=== PATIENT | male | born 1965 | race Caucasian/White ===

== ENCOUNTER → 2017-02-04 | Outpatient (CLI) | payer OTHER ==
--- NOTE | 2017-02-05 09:32 | XR ---
EXAMINATION TYPE: XR chest 2V DATE OF EXAM: 02/04/2017 COMPARISON: 10/18/2012 INDICATION: Cough, chest heaviness TECHNIQUE: Frontal and lateral views of the chest are obtained. FINDINGS: The heart size is normal. The pulmonary vasculature is normal. The lungs are clear. IMPRESSION: 1. No acute pulmonary process.
== END | disposition home or self-care (01) ==
LOC: RADXRMAIN 17:49
PROVIDERS: ATTEND Internal Medicine
DX: R05 Cough (principal)
CPT/HCPCS: 71020

== ENCOUNTER → 2017-02-14 | Outpatient (CLI) | payer OTHER ==
--- NOTE | 2017-02-14 20:15 | CT ---
EXAMINATION TYPE: CT chest wo con DATE OF EXAM: 02/14/2017 COMPARISON: 11/06/2015 HISTORY: Follow up nodule CT DLP: 769.9 mGycm. Automated Exposure Control for Dose Reduction was Utilized. TECHNIQUE: CT scan of the thorax is performed without IV contrast. FINDINGS: Prone and supine images were obtained. There is no evidence of a pulmonary mass. Lungs are clear of c onsolidation. There is no sign of mediastinal adenopathy. There is mild atherosclerotic vascular calc ification. There are no hilar masses. I do not see evidence of a right upper lobe pulmonary nodule. T here is no pleural effusion. There is mild pulmonary emphysema. Bony thorax appears intact. I see no bony destructive process. IMPRESSION: No evidence of a pulmonary nodule. Mild pulmonary emphysema. No adverse change compared t o old exam.
== END | disposition home or self-care (01) ==
LOC: RADCTMAIN 19:23
PROVIDERS: ATTEND Internal Medicine
DX: J43.9 Emphysema, unspecified (principal); R91.1 Solitary pulmonary nodule
CPT/HCPCS: 71250

== ENCOUNTER → 2017-03-10 | Outpatient (CLI) | payer OTHER ==
--- NOTE | 2017-03-10 11:30 | XR ---
EXAMINATION TYPE: XR hand complete LT DATE OF EXAM: 03/10/2017 COMPARISON: NONE HISTORY: 51-year-old male middle finger sprain, injury TECHNIQUE: 3 views FINDINGS: Very mild osteoarthritic spurring within the second and third MCP joints and mild within the second a nd fifth DIP joints. No acute fracture, subluxation, or dislocation identified. IMPRESSION: Mild scattered osteoarthritic changes. No acute osseous abnormality seen.
== END ==
LOC: RADXRMAIN 11:10
PROVIDERS: ATTEND Emergency Medicine
DX: M19.042 Primary osteoarthritis, left hand (principal)

== ENCOUNTER → 2017-03-17 | Outpatient (CLI) | payer OTHER ==
--- NOTE | 2017-03-17 10:48 | XR ---
EXAMINATION TYPE: XR hand complete LT DATE OF EXAM: 03/17/2017 COMPARISON: 03/10/2017 HISTORY: 51-year-old male left hand pain after injury a week ago, sprain, attention middle finger PIP joint TECHNIQUE: 3 views FINDINGS: Scattered mild osteophytic spurring is present such as at the base of the thumbs, within the DIP join ts, and even at the second and third MCP joints. There is very subtle lucency along the volar base of the third middle phalanx only seen on the lateral view. No other acute fracture, subluxation, or di slocation identified. IMPRESSION: Lucency now seen along the volar base of the third middle phalanx, identified only on the lateral vie w. A subtle nondisplaced volar plate avulsion fracture is not excluded especially if patient's sympto ms localize here at the PIP joint. Scattered mild osteoarthritic changes.
== END ==
LOC: RADXRMAIN 10:24
PROVIDERS: ATTEND Emergency Medicine
DX: M19.042 Primary osteoarthritis, left hand (principal)

== ENCOUNTER → 2017-05-29 | Outpatient (CLI) | payer OTHER ==
--- NOTE | 2017-05-29 14:02 | ECHOS ---
STRESS ECHOCARDIOGRAM INDICATIONS: Chest pain. MEDICATIONS: Hyoscyamine, omeprazole. BASELINE HEART RATE: 84 BASELINE BLOOD PRESSURE: 118/70 MAXIMUM HEART RATE: 157 MAXIMUM BLOOD PRESSURE: 172/85 85% MPHR: 143 100% MPHR: 168 MAXIMUM STAGE REACHED: 4 TOTAL EXERCISE TIME: 10:30. METS: 12.1 CLINICAL INFORMATION: Baseline EKG revealed A normal sinus rhythm without significant ST-T changes. Patient walked for 10.5 minutes on standard [place] protocol. Achieved a maximal heart rate of 157 beats per minute which is more than 85% of predicted maximal. He developed fatigue and shortness of breath but did not have any angina or arrhythmia. EKG did not reveal any ST-segment changes to indicate ischemia. By EKG criteria, this is a negative stress test with good exercise capacity. Baseline echo images revealed normal wall motion and wall thickening of all segments. At peak exercise, the quality of images were suboptimal, but based on available data, there is no evidence to suggest any stress-induced ischemia on this dobutamine echocardiogram. There was good augmentation of wall motion and wall thickening of all segments. Endocardial margins were not very crisply seen. IMPRESSION: 1. By EKG criteria, this is a negative stress test with good exercise capacity. 2. Normal stress echocardiogram with somewhat suboptimal images. MMODL / IJN: [id number] /
== END ==
LOC: RADNMMAIN 09:04
PROVIDERS: ATTEND Internal Medicine
DX: R07.9 Chest pain, unspecified (principal)
CPT/HCPCS: 93017; 93350

== ENCOUNTER → 2017-06-28 | Outpatient (CLI) | payer OTHER ==
--- NOTE | 2017-06-28 17:46 | XR ---
EXAMINATION TYPE: XR shoulder complete RT DATE OF EXAM: 06/28/2017 CLINICAL HISTORY: Right shoulder pain and popping sensation. TECHNIQUE: Three views of the right shoulder are obtained. COMPARISON: None. FINDINGS: There is no acute fracture/dislocation evident in the right shoulder. The acromioclavicul ar and glenohumeral joint spaces appear within normal limits. Subchondral cystic change superolateral humeral head is present. Distal acromion morphology is unremarkable. The visualized ribs are intact and unremarkable. IMPRESSION: There is no acute fracture or dislocation in the right shoulder.
== END | disposition home or self-care (01) ==
LOC: RADXRMAIN 12:25
PROVIDERS: ATTEND Internal Medicine
DX: M25.511 Pain in right shoulder (principal)

== ENCOUNTER 2018-05-23 05:17 | Emergency (ER) | payer OTHER ==
--- NOTE | 2018-05-23 05:49 | ED ---
Abdominal Pain HPI - General Chief Complaint: Abdominal Pain Stated Complaint: Abd Pain Time Seen by Provider: 05/23/18 05:34 Source: EMS Mode of arrival: EMS Limitations: no limitations - History of Present Illness Initial Comments: This patient is a 52-year-old man who presents to be viral for left lower quadrant pain. Patient states he was awakened from sleep around 4 by sharp left lower quadrant pain. He states that initially he thought was gas. He states that he attempted to alleviate it by turning from side to side. This did not relieve the pain and they called EMS. The patient states that the pain was constant, severe, sharp. It was coming by diaphoresis and nausea. Patient states that after he called EMS, it began to feel like it was going towards his left testicle. He states that the pain has subsequently resolved and he is not having any pain currently. MD Complaint: abdominal pain Onset/Timin -: hour(s) Location: LLQ Migration to: other (Right) Severity: severe Quality: sharp Consistency: constant, now resolved Improves With: nothing Worsens With: nothing Associated Symptoms: nausea, vomiting - Related Data Home Medications Medication Instructions Recorded Confirmed Omeprazole [PriLOSEC] 40 mg PO AC-BRKFST 10/04/13 10/05/13 Previous Rx's Medication Instructions Recorded Tamsulosin [Flomax] 0.4 mg PO DAILY #14 cap 05/23/18 Allergies Allergy/AdvReac Type Severity Reaction Status Date / Time No Known Allergies Allergy Verified 05/23/18 05:23 Review of Systems ROS Statement: Those systems with pertinent positive or pertinent negative responses have been documented in the HPI. ROS Other: All systems not noted in ROS Statement are negative. Constitutional: Denies: fever, chills Respiratory: Denies: cough, dyspnea Cardiovascular: Denies: chest pain, palpitations, edema Gastrointestinal: Reports: abdominal pain, nausea. Denies: vomiting, diarrhea, constipation Genitourinary: Reports: testicular pain. Denies: dysuria, frequency, hematuria , testicular mass Musculoskeletal: Denies: back pain Skin: Denies: rash Neurological: Denies: headache Past Medical History Past Medical History: GERD/Reflux History of Any Multi-Drug Resistant Organisms: None Reported Past Surgical History: Appendectomy, Back Surgery Past Anesthesia/Blood Transfusion Reactions: No Reported Reaction Past Psychological History: No Psychological Hx Reported Smoking Status: Current every day smoker Past Alcohol Use History: Rare Past Drug Use History: Marijuana General Exam Limitations: no limitations General appearance: alert, in no apparent distress Head exam: Present: atraumatic, normocephalic Eye exam: Present: normal appearance. Absent: scleral icterus, conjunctival injection Respiratory exam: Present: normal lung sounds bilaterally. Absent: respiratory distress, wheezes, rales, rhonchi, stridor Cardiovascular Exam: Present: regular rate, normal rhythm, normal heart sounds. Absent: systolic murmur, diastolic murmur, rubs, gallop GI/Abdominal exam: Present: soft, normal bowel sounds. Absent: distended, tenderness, guarding, rebound, rigid, mass, pulsatile mass, hernia Extremities exam: Present: normal inspection, normal capillary refill. Absent: pedal edema, calf tenderness Back exam: Present: normal inspection. Absent: CVA tenderness (R), CVA tenderness (L), vertebral tenderness Neurological exam: Present: alert Skin exam: Present: warm, dry, intact, normal color. Absent: rash Course Vital Signs 05/23/18 05:18 Temperature 98 F Pulse Rate 71 Respiratory 20 Rate Blood Pressure 116/79 O2 Sat by Pulse 96 Oximetry Medical Decision Making - Lab Data Result diagrams: 05/23/18 05:50 05/23/18 05:50 Lab Results 05/23/18 05/23/18 05/23/18 Range/Units 05:50 05:50 05:50 WBC 14.6 H (3.8-10.6) k/uL RBC 5.05 (4.30-5.90) m/uL Hgb 15.0 (13.0-17.5) gm/dL Hct 46.2 (39.0-53.0) % MCV 91.5 (80.0-100.0) fL MCH 29.8 (25.0-35.0) pg MCHC 32.6 (31.0-37.0) g/dL RDW 13.0 (11.5-15.5) % Plt Count 256 (150-450) k/uL Neutrophils % 77 % Lymphocytes % 14 % Monocytes % 5 % Eosinophils % 2 % Basophils % 1 % Neutrophils # 11.3 H (1.3-7.7) k/uL Lymphocytes # 2.1 (1.0-4.8) k/uL Monocytes # 0.7 (0-1.0) k/uL Eosinophils # 0.3 (0-0.7) k/uL Basophils # 0.1 (0-0.2) k/uL Sodium 143 (137-145) mmol/L Potassium 4.7 (3.5-5.1) mmol/L Chloride 111 H (98-107) mmol/L Carbon Dioxide 23 (22-30) mmol/L Anion Gap 9 mmol/L BUN 22 H (9-20) mg/dL Creatinine 0.89 (0.66-1.25) mg/dL Est GFR (CKD-EPI)AfAm >90 (>60 ml/min/1.73 sqM) Est GFR (CKD-EPI)NonAf >90 (>60 ml/min/1.73 sqM) Glucose 113 H (74-99) mg/dL Calcium 9.9 (8.4-10.2) mg/dL Total Bilirubin 0.5 (0.2-1.3) mg/dL AST 22 (17-59) U/L ALT 28 (21-72) U/L Alkaline Phosphatase 55 (38-126) U/L Total Protein 7.0 (6.3-8.2) g/dL Albumin 4.2 (3.5-5.0) g/dL Amylase 78 (30-110) U/L Lipase 127 (23-300) U/L Urine Color Yellow Urine Appearance Clear (Clear) Urine pH 5.5 (5.0-8.0) Ur Specific [place] 1.021 (1.001-1.035) Urine Protein Trace H (Negative) Urine Glucose (UA) Negative (Negative) Urine Ketones Negative (Negative) Urine Blood Moderate H (Negative) Urine Nitrite Negative (Negative) Urine Bilirubin Negative (Negative) Urine Urobilinogen <2.0 (<2.0) mg/dL Ur Leukocyte Esterase Negative (Negative) Urine RBC 2 (0-5) /hpf Urine WBC 1 (0-5) /hpf Urine Mucus Rare H (None) /hpf Disposition Clinical Impression: Renal colic on left side Disposition: HOME SELF-CARE Condition: Good Instructions: Renal Colic (ED) Prescriptions: Tamsulosin [Flomax] 0.4 mg PO DAILY #14 cap Is patient prescribed a controlled substance at d/c from ED?: No Referrals: Brittany Issa MD [Primary Care Provider] - 1-2 days Vick Crawford MD [STAFF PHYSICIAN] - 1-2 days
[2018-05-23 06:04] LABS: Basophils # (A) 0.1 k/uL (0-0.2); Basophils % (A) 1 %; Eosinophils # (A) 0.3 k/uL (0-0.7); Eosinophils % (A) 2 %; HCT 46.2 % (39.0-53.0); Lymphocytes # (A) 2.1 k/uL (1.0-4.8); Lymphocytes % (A) 14 %; MCH 29.8 pg (25.0-35.0); MCHC 32.6 g/dL (31.0-37.0); MCV 91.5 fL (80.0-100.0); Mean Platelet Volume 6.9; Monocytes # (A) 0.7 k/uL (0-1.0); Monocytes % (A) 5 %; Neutrophils # (A) 11.3 k/uL (1.3-7.7); Neutrophils % (A) 77 %; Platelet Count 256 k/uL (150-450); RBC 5.05 m/uL (4.30-5.90); WBC 14.6 k/uL (3.8-10.6)
[2018-05-23 06:07] LABS: Appearance,Urine Clear (Clear); Bilirubin,Urine Negative (Negative); Blood,Urine Moderate (Negative); Color,Urine Yellow; Glucose,Urine (UA) Negative (Negative); Ketones,Urine Negative (Negative); Leukocyte Esterase,Urine Negative (Negative); Mucus,Urine Rare /hpf; Nitrite,Urine Negative (Negative); PH, Urine 5.5 (5.0-8.0); Protein,Urine Trace (Negative); RBC,Urine 2 /hpf (0-5); Specific Gravity,Urine 1.021 (1.001-1.035); Urobilinogen,Urine <2.0 mg/dL (<2.0); WBC,Urine 1 /hpf (0-5)
[2018-05-23 06:17] LABS: Albumin 4.2 g/dL (3.5-5.0); Amylase 78 U/L (30-110); Anion Gap 9 mmol/L; Calcium 9.9 mg/dL (8.4-10.2); Carbon Dioxide 23 mmol/L (22-30); Chloride 111 mmol/L (98-107); Glucose 113 mg/dL (74-99); Lipase 127 U/L (23-300); Sodium 143 mmol/L (137-145); Total Bilirubin 0.5 mg/dL (0.2-1.3)
[2018-05-23 06:19] LABS: ALT 28 U/L (21-72); AST 22 U/L (17-59); Alkaline Phosphatase 55 U/L (38-126); Blood Urea Nitrogen 22 mg/dL (9-20); Potassium 4.7 mmol/L (3.5-5.1)
[2018-05-23] MEDS ORDERED: TAMSULOSIN 0.4 MG CAP.ER.24H PO STA (07:41)
[2018-05-23 08:09] VITALS: BP 114/72; PULSE 80; RESP 18; TEMP 98.2
== END 2018-05-23 08:07 | disposition home or self-care (01) ==
LOC: EC 05:17
DX: N23 Unspecified renal colic (principal); K21.9 Gastro-esophageal reflux disease without esophagitis; F17.200 Nicotine dependence, unspecified, uncomplicated; Z90.49 Acquired absence of other specified parts of digestive tract; Z79.899 Other long term (current) drug therapy
CPT/HCPCS: 36415; 80053; 81001; 82150; 83690; 85025; 99284

== ENCOUNTER → 2019-02-08 | Outpatient (CLI) | payer OTHER ==
--- NOTE | 2019-02-09 08:33 | XR ---
EXAMINATION TYPE: XR chest 2V DATE OF EXAM: 02/08/2019 COMPARISON: 02/04/2017 HISTORY: Cough with history of tobacco abuse TECHNIQUE: Frontal and lateral views of the chest are obtained. FINDINGS: There is no focal air space opacity, pleural effusion, or pneumothorax seen. Slight centra l peribronchial cuffing. The cardiac silhouette size is within normal limits. The osseous structure s are intact. Mild multilevel degenerative changes of the spine. IMPRESSION: Slight central peribronchial cuffing may be on the basis of reactive or infectious airwa y disease. No focal consolidation is seen.
--- NOTE | 2019-02-09 08:41 | XR ---
EXAMINATION TYPE: XR cervical spine comp DATE OF EXAM: 02/08/2019 TECHNIQUE: Frontal, lateral, oblique, swimmers, and open mouth view of the cervical spine are caitlyn mcguire HISTORY: M47.892, J44.9 nontraumatic neck pain COMPARISON: None FINDINGS: The cervical spine is visualized in its entirety from C1 thru the top of T1 level, it is s atisfactory in alignment without evidence of acute fracture or dislocation. The pre-vertebral soft t issue appears within normal limits. The C1-C2 articulation is within normal limits on the open mouth view. Small anterior osteophytes are seen at C4-C5, C5-C6 and C6-C7 The oblique images are within no rmal limits. There is straightening of usual cervical lordosis. IMPRESSION: No acute fracture or dislocation is seen in the cervical spine. Mild multilevel degenera tive disc disease of the cervical spine. Straightening of usual cervical lordosis that may relate to muscular sprain/spasm or patient positioning.
== END | disposition home or self-care (01) ==
LOC: RADXRMAIN 17:24
PROVIDERS: ATTEND Internal Medicine
DX: M50.30 Other cervical disc degeneration, unspecified cervical region (principal); M40.40 Postural lordosis, site unspecified; J44.9 Chronic obstructive pulmonary disease, unspecified
CPT/HCPCS: 71046; 72050

== ENCOUNTER → 2019-02-11 | Outpatient (CLI) | payer OTHER ==
--- NOTE | 2019-02-12 07:25 | XR ---
EXAMINATION TYPE: XR shoulder complete LT DATE OF EXAM: 02/11/2019 CLINICAL HISTORY: Left shoulder pain with no known injury TECHNIQUE: Three views of the left shoulder are obtained. COMPARISON: None. FINDINGS: There is no acute fracture/dislocation evident in the left shoulder. The acromioclavicula r and glenohumeral joint spaces appear alignment however there are small marginal osteophytes of the acromioclavicular joint. The visualized ribs are intact and unremarkable. IMPRESSION: There is no acute fracture or dislocation in the left shoulder. Mild left acromioclavicu lar arthropathy.
--- NOTE | 2019-02-12 07:39 | XR ---
EXAMINATION TYPE: XR Hip Complete LT DATE OF EXAM: 02/11/2019 CLINICAL HISTORY: Left hip pain TECHNIQUE: AP and frogleg views of the left hip are obtained. COMPARISON: None. FINDINGS: There is no acute fracture/dislocation evident in the left hip. The joint space in the le ft hip appears aligned with minimal acetabular sclerosis. Small cam deformity is seen of the lateral femoral head neck junction on the frog-leg view. The overlying soft tissue appears unremarkable. IMPRESSION: There is no acute fracture or dislocation in the left hip. Minimal left femoral acetabul ar arthropathy in addition to a small cam deformity that can predispose this patient to femoral aceta bular impingement syndrome.
== END | disposition home or self-care (01) ==
LOC: RADXRMAIN 17:46
PROVIDERS: ATTEND Internal Medicine
DX: M19.012 Primary osteoarthritis, left shoulder (principal); M16.12 Unilateral primary osteoarthritis, left hip
CPT/HCPCS: 73502

== ENCOUNTER → 2019-04-16 | Outpatient (CLI) | payer OTHER ==
--- NOTE | 2019-04-16 08:16 | US ---
EXAMINATION TYPE: US gallbladder DATE OF EXAM: 04/16/2019 COMPARISON: NONE CLINICAL HISTORY: R10.13 Epigastric pain. EXAM MEASUREMENTS: Liver Length: 12.7 cm Gallbladder Wall: 0.1 cm CBD: 0.2 cm Right Kidney: 10.7 x 4.4 x 4.6 cm Pancreas: Obscured by bowel gas Liver: wnl Gallbladder: wnl Evidence for sonographic Turner's sign: no CBD: wnl Right Kidney: No hydronephrosis or masses seen IMPRESSION: No sonographic evidence of cholelithiasis nor acute cholecystitis. Unremarkable abdominal ultrasound.
== END | disposition home or self-care (01) ==
LOC: RADUSWWP 06:52
PROVIDERS: ATTEND Internal Medicine Gastroenterology
DX: R10.13 Epigastric pain (principal)
CPT/HCPCS: 76705

== ENCOUNTER 2019-04-27 20:56 | Emergency (ER) | payer OTHER ==
[2019-04-27] MEDS ORDERED: KETOROLAC 30 MG/ML 1 ML VIAL IVP STA (21:29)
[2019-04-27] MEDS ORDERED: ONDANSETRON 4 MG/2 ML VIAL IVP STA (21:29)
[2019-04-27] MEDS ORDERED: SODIUM CHLORIDE 0.9% 1,000 ML IV STA (21:29)
[2019-04-27] MEDS ORDERED: HYDROmorphone 0.5 MG/0.5 ML SYRINGE IVP STA (21:29)
[2019-04-27 21:50] LABS: Basophils # (A) 0.3 k/uL (0-0.2); Basophils % (A) 2 %; Eosinophils # (A) 0.3 k/uL (0-0.7); Eosinophils % (A) 2 %; HCT 43.8 % (39.0-53.0); HGB 14.7 gm/dL (13.0-17.5); Lymphocytes # (A) 0.5 k/uL (1.0-4.8); Lymphocytes % (A) 3 %; MCH 29.9 pg (25.0-35.0); MCHC 33.5 g/dL (31.0-37.0); MCV 89.4 fL (80.0-100.0); Mean Platelet Volume 6.7; Monocytes # (A) 0.7 k/uL (0-1.0); Monocytes % (A) 4 %; Neutrophils # (A) 13.8 k/uL (1.3-7.7); Neutrophils % (A) 88 %; Platelet Count 228 k/uL (150-450); WBC 15.7 k/uL (3.8-10.6)
[2019-04-27 22:02] LABS: ALT 45 U/L (21-72); AST 21 U/L (17-59); African American GFR (CKD) >90 (>60 ml/min/1.73 sqM); Albumin 4.5 g/dL (3.5-5.0); Alkaline Phosphatase 58 U/L (38-126); Anion Gap 9 mmol/L; Blood Urea Nitrogen 14 mg/dL (9-20); Calcium 9.7 mg/dL (8.4-10.2); Carbon Dioxide 22 mmol/L (22-30); Chloride 105 mmol/L (98-107); Glucose 119 mg/dL (74-99); Magnesium 1.9 mg/dL (1.6-2.3); Non-African American GFR(CKD) 90 (>60 ml/min/1.73 sqM); Sodium 136 mmol/L (137-145); Total Bilirubin 0.9 mg/dL (0.2-1.3); Total Protein 6.9 g/dL (6.3-8.2)
[2019-04-27 22:04] LABS: D-Dimer 0.31 mg/L FEU (<0.60); Partial Thromboplastin Time 26.1 sec (22.0-30.0); Prothrombin Time 10.3 sec (9.0-12.0)
[2019-04-27] MEDS ORDERED: ACETAMINOPHEN TAB 500 MG TAB PO STA (22:26)
--- NOTE | 2019-04-27 22:27 | ED ---
General Adult HPI - General Chief complaint: Back Pain/Injury Stated complaint: Lower back, arm pain, sweating, SOB Time Seen by Provider: 04/27/19 21:16 Source: patient Mode of arrival: wheelchair Limitations: no limitations - History of Present Illness Initial comments: 53-year-old male patient presents to the emergency department today for evaluation of increased low back pain. Patient states throughout the day today he has had increased low back pain. States is radiating across his entire low back area describes the pain is sharp in nature. Denies radiation down his legs. Denies any numbness or tingling to the lower extremities, or loss of bowel or bladder control. Denies saddle anesthesia. Patient does have history of low back pain and has had 2 surgeries to the low back. States the pain feels somewhat different than usual. He is also reporting pain between his shoulder blades social taking a deep breath. States he is experiencing nasal congestion and drainage and sore throat. He denies any cough or chest congestion. Denies rash. Denies any hematuria, dysuria, urinary frequency, urinary urgency. He is reporting fever and chills. He did take tylenol about 6 hours ago with little relief. Patient denies any recent rash, shortness breath, chest pain, abdominal pain, nausea, vomiting, diarrhea, constipation, dizziness, weakness, visual changes, or any other complaints. - Related Data Home Medications Medication Instructions Recorded Confirmed Amitriptyline HCl [Elavil] 10 mg PO HS 04/27/19 04/27/19 Omeprazole [PriLOSEC] 20 mg PO DAILY 04/27/19 04/27/19 Previous Rx's Medication Instructions Recorded Azithromycin 250 mg PO DAILY #4 tablet 04/28/19 Allergies Allergy/AdvReac Type Severity Reaction Status Date / Time No Known Allergies Allergy Verified 04/27/19 22:33 Review of Systems ROS Statement: Those systems with pertinent positive or pertinent negative responses have been documented in the HPI. ROS Other: All systems not noted in ROS Statement are negative. Past Medical History Past Medical History: GERD/Reflux History of Any Multi-Drug Resistant Organisms: None Reported Past Surgical History: Appendectomy, Back Surgery Past Anesthesia/Blood Transfusion Reactions: No Reported Reaction Past Psychological History: No Psychological Hx Reported Smoking Status: Current every day smoker Past Alcohol Use History: Rare Past Drug Use History: Marijuana General Exam Limitations: no limitations General appearance: alert, in no apparent distress, other (This is a well- developed, well-nourished adult male patient in no acute distress. Vital signs upon presentation are temperature 101.4F, pulse 103, respirations 20, blood pressure 117/69, pulse ox 96% on room air per) Eye exam: Present: normal appearance, PERRL, EOMI. Absent: scleral icterus, conjunctival injection, periorbital swelling ENT exam: Present: normal exam, normal oropharynx, mucous membranes moist Neck exam: Present: normal inspection, full ROM. Absent: tenderness, meningismus, lymphadenopathy Respiratory exam: Present: normal lung sounds bilaterally. Absent: respiratory distress, wheezes, rales, rhonchi, stridor GI/Abdominal exam: Present: soft, normal bowel sounds. Absent: distended, tenderness, guarding, rebound, rigid Back exam: Present: normal inspection. Absent: vertebral tenderness Neurological exam: Present: alert, oriented X3, CN II-XII intact Psychiatric exam: Present: normal affect, normal mood Skin exam: Present: warm, dry, intact, normal color. Absent: rash Course Vital Signs 04/27/19 04/27/19 04/27/19 20:58 22:15 23:31 Temperature 99.5 F 101.4 F H 98.6 F Pulse Rate 103 H Respiratory 20 Rate Blood Pressure 117/69 O2 Sat by Pulse 96 Oximetry 04/27/19 04/28/19 23:32 00:54 Temperature 98.5 F Pulse Rate 85 93 Respiratory 18 18 Rate Blood Pressure 106/73 108/65 O2 Sat by Pulse 94 L 100 Oximetry EKG Findings - EKG Comments: EKG Findings:: EKG obtained at 2147 shows normal sinus rhythm with a ventricular rate of 92, FL interval 130, QRS duration 90, QT 332, QTc 410. No evidence of ST elevation or depression. Medical Decision Making - Medical Decision Making 53-year-old male patient presents to the emergency department today for evaluation of upper back pain with inspiration, low back pain, and fever. Physical examination did reveal clear equal lung sounds. He is neurologically intact with no focal deficits. No concerning symptoms for cauda equina. Vital signs do reveal elevated temperature but are otherwise normal. Labs reviewed and did reveal elevated white blood cell count at 15.6. Urinalysis is negative for presence of blood. Chest x-ray did show left lower lobe infiltrate. We'll treat with a azithromycin for pneumonia. He is instructed to take Tylenol Motrin for fever control. Instructed to follow-up with his primary care physician for recheck in 1-2 days. Return parameters were discussed in detail. He verbalizes understanding and agrees with this plan. - Lab Data Result diagrams: 04/27/19 21:35 04/27/19 21:35 Lab Results 04/27/19 04/27/19 04/27/19 Range/Units 21:35 21:35 21:35 WBC 15.7 H (3.8-10.6) k/uL RBC 4.90 (4.30-5.90) m/uL Hgb 14.7 (13.0-17.5) gm/dL Hct 43.8 (39.0-53.0) % MCV 89.4 (80.0-100.0) fL MCH 29.9 (25.0-35.0) pg MCHC 33.5 (31.0-37.0) g/dL RDW 13.0 (11.5-15.5) % Plt Count 228 (150-450) k/uL Neutrophils % 88 % Lymphocytes % 3 % Monocytes % 4 % Eosinophils % 2 % Basophils % 2 % Neutrophils # 13.8 H (1.3-7.7) k/uL Lymphocytes # 0.5 L (1.0-4.8) k/uL Monocytes # 0.7 (0-1.0) k/uL Eosinophils # 0.3 (0-0.7) k/uL Basophils # 0.3 H (0-0.2) k/uL PT 10.3 (9.0-12.0) sec INR 1.0 (<1.2) APTT 26.1 (22.0-30.0) sec D-Dimer 0.31 (<0.60) mg/L FEU Sodium 136 L (137-145) mmol/L Potassium 4.0 (3.5-5.1) mmol/L Chloride 105 (98-107) mmol/L Carbon Dioxide 22 (22-30) mmol/L Anion Gap 9 mmol/L BUN 14 (9-20) mg/dL Creatinine 0.96 (0.66-1.25) mg/dL Est GFR (CKD-EPI)AfAm >90 (>60 ml/min/1.73 sqM) Est GFR (CKD-EPI)NonAf 90 (>60 ml/min/1.73 sqM) Glucose 119 H (74-99) mg/dL Calcium 9.7 (8.4-10.2) mg/dL Magnesium 1.9 (1.6-2.3) mg/dL Total Bilirubin 0.9 (0.2-1.3) mg/dL AST 21 (17-59) U/L ALT 45 (21-72) U/L Alkaline Phosphatase 58 (38-126) U/L Troponin I (0.000-0.034) ng/mL Total Protein 6.9 (6.3-8.2) g/dL Albumin 4.5 (3.5-5.0) g/dL Urine Color Urine Appearance (Clear) Urine pH (5.0-8.0) Ur Specific [place] (1.001-1.035) Urine Protein (Negative) Urine Glucose (UA) (Negative) Urine Ketones (Negative) Urine Blood (Negative) Urine Nitrite (Negative) Urine Bilirubin (Negative) Urine Urobilinogen (<2.0) mg/dL Ur Leukocyte Esterase (Negative) Influenza Type A RNA (Not Detectd) Influenza Type B (PCR) (Not Detectd) 04/27/19 04/27/19 04/27/19 Range/Units 21:35 22:00 22:30 WBC (3.8-10.6) k/uL RBC (4.30-5.90) m/uL Hgb (13.0-17.5) gm/dL Hct (39.0-53.0) % MCV (80.0-100.0) fL MCH (25.0-35.0) pg MCHC (31.0-37.0) g/dL RDW (11.5-15.5) % Plt Count (150-450) k/uL Neutrophils % % Lymphocytes % % Monocytes % % Eosinophils % % Basophils % % Neutrophils # (1.3-7.7) k/uL Lymphocytes # (1.0-4.8) k/uL Monocytes # (0-1.0) k/uL Eosinophils # (0-0.7) k/uL Basophils # (0-0.2) k/uL PT (9.0-12.0) sec INR (<1.2) APTT (22.0-30.0) sec D-Dimer (<0.60) mg/L FEU Sodium (137-145) mmol/L Potassium (3.5-5.1) mmol/L Chloride (98-107) mmol/L Carbon Dioxide (22-30) mmol/L Anion Gap mmol/L BUN (9-20) mg/dL Creatinine (0.66-1.25) mg/dL Est GFR (CKD-EPI)AfAm (>60 ml/min/1.73 sqM) Est GFR (CKD-EPI)NonAf (>60 ml/min/1.73 sqM) Glucose (74-99) mg/dL Calcium (8.4-10.2) mg/dL Magnesium (1.6-2.3) mg/dL Total Bilirubin (0.2-1.3) mg/dL AST (17-59) U/L ALT (21-72) U/L Alkaline Phosphatase (38-126) U/L Troponin I <0.012 (0.000-0.034) ng/mL Total Protein (6.3-8.2) g/dL Albumin (3.5-5.0) g/dL Urine Color Yellow Urine Appearance Clear (Clear) Urine pH 8.0 (5.0-8.0) Ur Specific [place] 1.023 (1.001-1.035) Urine Protein Trace H (Negative) Urine Glucose (UA) Negative (Negative) Urine Ketones 1+ H (Negative) Urine Blood Negative (Negative) Urine Nitrite Negative (Negative) Urine Bilirubin Negative (Negative) Urine Urobilinogen <2.0 (<2.0) mg/dL Ur Leukocyte Esterase Negative (Negative) Influenza Type A RNA Not Detected (Not Detectd) Influenza Type B (PCR) Not Detected (Not Detectd) Disposition Clinical Impression: Pneumonia, Fever Disposition: HOME SELF-CARE Condition: Good Instructions (If sedation given, give patient instructions): Fever in Adults (ED), Pneumonia (ED) Additional Instructions: Take Tylenol Motrin alternating for fever control. Complete antibiotic prescription in full. Follow-up with your primary care physician for recheck in 1-2 days. Return to the emergency department immediately for any new, worsening, or concerning symptoms. Prescriptions: Azithromycin 250 mg PO DAILY #4 tablet Is patient prescribed a controlled substance at d/c from ED?: No Referrals: Brittany Issa MD [Primary Care Provider] - 1-2 days Time of Disposition: 00:16
--- NOTE | 2019-04-27 22:40 | XR ---
EXAMINATION TYPE: XR chest 2V DATE OF EXAM: 04/27/2019 COMPARISON: 02/08/2019 HISTORY: Pain TECHNIQUE: Frontal and lateral views of the chest are obtained. FINDINGS: Heart is normal. Lungs are clear of consolidation. There are no hilar masses. There is nabil e mild coarse linear density in the left lower lobe. There is no pleural effusion. Bony thorax is int act. IMPRESSION: There is some mild linear infiltrate and atelectasis left lower lobe that is new compare d to old exam. Normal heart.
[2019-04-27 23:34] VITALS: RESP 18
[2019-04-28 00:12] LABS: Appearance,Urine Clear (Clear); Bilirubin,Urine Negative (Negative); Blood,Urine Negative (Negative); Color,Urine Yellow; Glucose,Urine (UA) Negative (Negative); Ketones,Urine 1+ (Negative); Leukocyte Esterase,Urine Negative (Negative); Nitrite,Urine Negative (Negative); Protein,Urine Trace (Negative); Specific Gravity,Urine 1.023 (1.001-1.035); Urobilinogen,Urine <2.0 mg/dL (<2.0)
[2019-04-28] MEDS ORDERED: AZITHROMYCIN 500 MG TAB PO STA (00:15)
[2019-04-28 00:55] VITALS: BP 108/65; PULSE 93; TEMP 98.5
== END 2019-04-28 00:55 | disposition home or self-care (01) ==
LOC: EC 20:56
DX: J18.1 Lobar pneumonia, unspecified organism (principal); M54.5 Low back pain; M54.6 Pain in thoracic spine; J02.9 Acute pharyngitis, unspecified; K21.9 Gastro-esophageal reflux disease without esophagitis; F17.200 Nicotine dependence, unspecified, uncomplicated; Z79.899 Other long term (current) drug therapy; Z98.890 Other specified postprocedural states
CPT/HCPCS: 36415; 93005; 85379; 80053; 83735; 84484; 85025; 85610; 85730; 81003; 87502; 71046; 99284; 96374; 96375 ×2; 96361; J2405; J1885; J1170

== ENCOUNTER → 2019-07-19 | Outpatient (CLI) | payer OTHER ==
--- NOTE | 2019-07-20 03:45 | XR ---
EXAMINATION TYPE: XR chest 2V DATE OF EXAM: 07/19/2019 COMPARISON: None HISTORY: 53-year-old male follow-up pneumonia, J18.9, M47.897 TECHNIQUE: Frontal and lateral views FINDINGS: The heart is normal size. Aorta and pulmonary vasculature within normal limits. Left hilar/suprahilar prominence may be projectional. No consolidation or pleural effusion. IMPRESSION: Left hilar/suprahilar prominence may be projectional. Contrast enhanced CT can exclude underlying mas s or lymphadenopathy. Otherwise, no acute process seen.
--- NOTE | 2019-07-20 03:47 | XR ---
EXAMINATION TYPE: XR lumbar spine 2 or 3V DATE OF EXAM: 07/19/2019 Comparison: None Clinical History: 53-year-old male J18.9, M47.897. Pain. Findings: There seems to be a transitional lumbosacral segment denoted as a sacralized L5. Hypertrophic facet a rthropathy throughout. Moderate degenerative disc disease mid and lower lumbar spine characterized by disc space narrowing and endplate spondylosis. Vertebral body heights are preserved and alignment is maintained. Impression: Transitional lumbosacral segment denoted as a sacralized L5. Hypertrophic facet arthropathy throughou t without malalignment. Moderate degenerative disc disease mid to lower lumbar spine.
== END | disposition home or self-care (01) ==
LOC: RAD 16:36
PROVIDERS: ATTEND Internal Medicine
DX: M51.36 Other intervertebral disc degeneration, lumbar region (principal); M43.27 Fusion of spine, lumbosacral region; M46.96 Unspecified inflammatory spondylopathy, lumbar region; J18.9 Pneumonia, unspecified organism
CPT/HCPCS: 71046; 72100

== ENCOUNTER → 2019-08-19 | Outpatient (CLI) | payer OTHER ==
--- NOTE | 2019-08-20 07:54 | CT ---
EXAMINATION TYPE: CT chest w con DATE OF EXAM: 08/19/2019 COMPARISON: Chest x-ray February 14, 2017. And CT low dose lung November 06, 2015 along with chest x-ray July 19, 2019. HISTORY: Pulmonary mass. CT DLP: 389.4 mGycm. Automated Exposure Control for Dose Reduction was Utilized. TECHNIQUE: CT scan of the thorax is performed following with IV Contrast, patient injected with 100m l mL of Isovue 300. FINDINGS: LUNGS: Mild emphysematous change particularly posterior aspect of the lung apices. No suspicious nodu les or masses with particular attention to the left hilar region at area of concern on x-ray. Finding correlates with confluence of pulmonary vessels. No pleural effusion or pneumothorax. No suspicious nodules or masses. MEDIASTINUM: There are no greater than 1 cm hilar or mediastinal lymph nodes. No cardiomegaly or pe ricardial effusion is seen. OTHER: Fairly moderate multilevel spurring in the thoracic spine. IMPRESSION: No suspicious nodules or masses. Mild emphysematous change without acute pulmonary proces s. No significant change from prior studies.
== END | disposition home or self-care (01) ==
LOC: RADCTMAIN 17:19
PROVIDERS: ATTEND Internal Medicine
DX: R91.8 Other nonspecific abnormal finding of lung field (principal)
CPT/HCPCS: 71260; Q9967

== ENCOUNTER 2022-04-12 06:21 | Day surgery (SDC) | payer OTHER ==
[2022-04-11 11:32] VITALS: BMI 30.1
[~2022-04-12 06:21] MED LIST: LACTATED RINGERS 1,000 ML IV SCH
[2022-04-12 06:51] VITALS: TEMP 97.5
[2022-04-12] MEDS ORDERED: PROPOFOL 10 MG/ML 20 ML VIAL IV ONE (07:18)
[2022-04-12] MEDS ORDERED: fentaNYL (PF) 50 MCG/ML 2 ML AMP ONE (07:18)
[2022-04-12] MEDS ORDERED: MIDAZOLAM 2 MG/2 ML VIAL ONE (07:18)
[2022-04-12] MEDS ORDERED: LIDOCAINE 2% INJ 20 MG/ML (2 ML VIAL) ONE (07:18)
--- NOTE | 2022-04-12 07:45 | P.PCN ---
Date of Procedure: 04/12/22 Procedure(s) Performed: Brief history: Patient is a pleasant 56-year-old white female scheduled for an elective upper endoscopy as well as colonoscopy as a part of evaluation of GERD/intermittent epigastric pain and screening for colon cancer. Procedure performed: Esophagogastroduodenoscopy with biopsy Colonoscopy Preoperative diagnosis: GERD/intermittent epigastric pain Screening for colon cancer Anesthesia: MAC Procedure: After informed consent was obtained from the patient was brought into the endoscopy unit and IV sedation was administered by anesthesia under continuous monitoring. Initially upper endoscopy was done. The Olympus GF 160 video endoscope was inserted inserted into the mouth and esophagus intubated without any difficulty and was gradually advanced into the stomach and duodenum and carefully examined. The bulb and second part of the duodenum appeared normal. The scope was then withdrawn into the stomach adequately insufflated with air and upon careful examination the antrum and body, had diffuse gastritis and biopsies were done from this area. The cardia and fundus appeared normal. The scope was then withdrawn into the esophagus. The GE junction was located at 40 cm to the incisors. Small hiatal hernia noted. There was a short segment of Foster's esophagus extended 5 mm proximal to the GE junction which was biopsied. There was no erythema erosions or ulcerations. Rest of the esophagus appeared normal. Patient tolerated the procedure well. At this time the patient continued to remain sedation. Initial digital rectal examination was normal. Olympus CF 160 video colonoscope was then inserted into the rectum and gradually advanced to the cecum without any difficulty. Careful examination was performed as the scope was gradually being withdrawn. The prep was excellent. The cecum, ascending colon, transverse colon, descending colon, sigmoid colon and rectum appeared normal. Retroflexion was performed in the rectum and no lesions were noted. Patient tolerated the procedure well. Impression: 1. Upper endoscopy revealed antral erosive gastritis, small hiatal hernia and short segment Foster's esophagus 2. Colonoscopy was within normal limits with no evidence of colorectal neoplasia. Recommendations: Findings of this examination were discussed with the patient as well as her family. He was advised to follow with the biopsy results. In general with omeprazole 20 mg daily and follow antireflux measures. If the biopsy reveals presence of Foster's esophagus he can have a repeat upper endoscopy in 3 years. Recommend repeat screening colonoscopy in 10 years.
[2022-04-12 08:20] VITALS: BP 122/79; PULSE 66; RESP 16
== END 2022-04-12 08:23 | disposition home or self-care (01) ==
LOC: ORWHC2ENDO 06:21
PROVIDERS: ATTEND Internal Medicine Gastroenterology
DX: Z12.11 Encounter for screening for malignant neoplasm of colon (principal); K29.50 Unspecified chronic gastritis without bleeding; K22.70 Barrett's esophagus without dysplasia; K21.00 Gastro-esophageal reflux disease with esophagitis, without bleeding; K44.9 Diaphragmatic hernia without obstruction or gangrene; E78.5 Hyperlipidemia, unspecified; J44.9 Chronic obstructive pulmonary disease, unspecified
CPT/HCPCS: 88305; 45378; 43239; J2250; J3010; J2704; J2001

== ENCOUNTER → 2023-01-02 | Outpatient (CLI) | payer OTHER ==
--- NOTE | 2023-01-02 08:53 | US ---
EXAMINATION TYPE: US carotid duplex BILAT DATE OF EXAM: 01/02/2023 COMPARISON: NONE CLINICAL INDICATION: Male, 57 years old with history of I65.23 CAROTID STENOSIS; family hx of heart a ttack, father at 52, brother at 48 TECHNIQUE: Carotid duplex ultrasound examination. Indirect Doppler criteria was utilized. FINDINGS: EXAM MEASUREMENTS: RIGHT: Peak Systolic Velocity (PSV) cm/sec ----- Right CCA: 93.9 ----- Right ICA: 85.2 ----- Right ECA: 118.9 ICA/CCA ratio: 0.9 RIGHT: End Diastole cm/sec ----- Right CCA: 37.2 ----- Right ICA: 31.4 ----- Right ECA: 23.6 LEFT: Peak Systolic Velocity (PSV) cm/sec ----- Left CCA: 75.3 ----- Left ICA: 89.7 ----- Left ECA: 118.5 ICA/CCA ratio: 0.9 LEFT: End Diastole cm/sec ----- Left CCA: 26.8 ----- Left ICA: 41.3 ----- Left ECA: 27.9 VERTEBRALS (direction of flow): Right Vertebral: Antegrade Left Vertebral: Antegrade Rhythm: Normal COMMUNITY DIETITIAN NOTES: Mild atherosclerotic IMPRESSION: Less than 50% stenosis of bilateral carotid bifurcations. Criteria for Assigning % of Stenosis / Diameter reduction (Estimation based on the indirect measurements of the internal carotid artery velocities (ICA PSV). 1. Normal (no stenosis)=ICA PSV < 125 cm/s: ratio < 2.0: ICA EDV<40 cm/s. 2. Less than 50% stenosis=ICA PSV < 125 cm/s: ratio < 2.0: ICA EDV<40 cm/s. 3. 50 to 69% stenosis=ICA PSV of 125 to 230 cm/s: ration 2.0 ? 4.0: ICA EDV 40-100 cm/s. 4. Greater than 70% stenosis to near occlusion= ICA PSV > 230 cm/s: ratio > 4.0: ICA EDV > 100 cm/s. 5. Near occlusion= ICA PSV velocities may be low or undetectable: variable ratio and ICA EDV. 6. Total occlusion=unable to detect flow.
--- NOTE | 2023-01-02 09:16 | US ---
EXAMINATION TYPE: US gallbladder DATE OF EXAM: 01/02/2023 COMPARISON: NONE CLINICAL INDICATION: Male, 57 years old with history of R10.13 DYSPEPSIA; intermittent epigastric collette n often with hunger TECHNIQUE: Multiple sonographic images of the right upper quadrant are obtained. FINDINGS: EXAM MEASUREMENTS: Liver Length: 15.5 cm Gallbladder Wall: 0.1 cm CBD: 0.6 cm Right Kidney: 10.2x4.3x4.8 cm Pancreas: partly obscured by overlying bowel gas. Limited detailed assessment due to large patient b azra habitus. Liver: Slightly limited due to bowel and rib spaces. In addition, there is diffuse increased echogeni city and far field attenuation. Gallbladder: wnl Evidence for sonographic Turner's sign: No CBD: upper limits Right Kidney: wnl IMPRESSION: 1. Moderate to severe hepatic steatosis. Correlate with LFTs, lipid profile, and patient risk factors . 2. No gallstones. 3. Bile duct borderline in caliber at 6 mm. This may be chronic for the patient. Correlate with alkal ine phosphatase and bilirubin levels.
== END | disposition home or self-care (01) ==
LOC: RADUSWWP 06:58
PROVIDERS: ATTEND Internal Medicine
DX: I65.23 Occlusion and stenosis of bilateral carotid arteries (principal); K76.0 Fatty (change of) liver, not elsewhere classified; Z82.49 Family history of ischemic heart disease and other diseases of the circulatory system
CPT/HCPCS: 76705; 93880